=== PATIENT | male | born 1995 | race African-American/Black ===

== ENCOUNTER 2025-03-01 15:53 | Emergency (ER) | payer SELFPAY ==
[2025-03-01] MEDS ORDERED: Droperidol 5 MG/2 ML VIAL ONE (16:51)
== END 2025-03-01 18:05 | disposition home or self-care (01) ==
LOC: CSHERS 15:53
DX: R51.9 Headache, unspecified (principal); R29.700 NIHSS score 0
CPT/HCPCS: J1790